=== PATIENT | female | born 1950 | race Caucasian/White ===

== ENCOUNTER → 2016-08-16 | Outpatient (CLI) | payer MEDICARE, BC ==
[~2016-08-16] MED LIST: CITA-108 PO; FISH1CAP29 PO; MULT1CAP47 PO
--- NOTE | 2016-08-16 15:56 | DI ---
Indication: ITS.REASON: S89.91XA INJURY PROCEDURE: MRI SHOULDER RIGHT W/O CONTRAS: Encounter: Initial Comparison: None Technique: Multiplanar multisequence MR imaging of the right shoulder was performed without contrast. FINDINGS: There is no abnormal marrow signal to suggest occult bony injury. There is no evidence for effusion or periarticular cyst. No evidence for neuropathy. There is a full-thickness tear through the distal supraspinatus, at its insertion. There is also a predominantly articular surface tear of the infraspinatus with a small full-thickness extension inferiorly. The teres minor is unremarkable. The subscapularis has some irregularity along its superior aspect just above its insertion consistent with a partial tear. There is mild AC joint disease but there is no significant mass effect upon the myotendinous junction of the distal supraspinatus. The superior labrum retains its triangular shape but there is some increased signal suggesting a nondetached superior labral tear. There is probable extension into the upper aspect of the posterior and the anterior labrum. The biceps tendon is normally positioned within the bicipital groove. IMPRESSION: Full-thickness distal supraspinatus tear at its insertion without atrophy or retraction. Predominantly articular distal infraspinatus with small full-thickness extension. Partial tear of the superior aspect of the subscapularis just above its insertion. Suspect nondisplaced tear superior labral tear extending slightly into the anterior and posterior labrum. .
== END ==
LOC: IMA 13:46
PROVIDERS: ATTEND Orthopaedic Surgery
DX: S46.011A Strain of muscle(s) and tendon(s) of the rotator cuff of right shoulder, initial encounter (principal); W19.XXXA Unspecified fall, initial encounter; Y93.9 Activity, unspecified; Y92.009 Unspecified place in unspecified non-institutional (private) residence as the place of occurrence of the external cause; Y99.9 Unspecified external cause status

== ENCOUNTER → 2016-09-09 | Outpatient (CLI) | payer MEDICARE, BC ==
--- NOTE | 2016-09-09 16:14 | DI ---
INDICATION: ITS.REASON: Z01.818 PRE-OP EXAM PROCEDURE: CHEST 2-VIEWS UPRIGHT (PA \T\ LAT) Encounter: Initial COMPARISON: November 27, 2012 FINDINGS: The lungs are clear without evidence of focal abnormal airspace opacity. There is no pleural effusion or pneumothorax. The heart size, mediastinal contours and pulmonary vascularity are within normal limits. IMPRESSION: No acute cardiopulmonary disease. .
== END ==
LOC: IMA 15:58
PROVIDERS: ATTEND Family Medicine
DX: Z01.818 Encounter for other preprocedural examination (principal)